=== PATIENT | female | born 1985 | race Caucasian/White ===

== ENCOUNTER 2019-12-17 05:44 | Inpatient (IN) ==
[2019-12-11 12:49] LABS: Basophils # 0.1 10*3/uL (0.0-0.2); Basophils % 0.4 % (0.0-0.8); Eosinophils # 0.1 10*3/uL (0.0-0.87); Eosinophils % 0.6 % (0.00-10.9); Hematocrit 41.1 VOL% (35.7-47.0); Hemoglobin 13.1 GM/DL (12.0-16.0); Immature Granulocytes % 0.3 %; Immature Granulocytes Absolute 0.03 #; Lymphocytes # 4.3 10*3/uL (1.4-4.0); Lymphocytes % 38.2 % (21.3-54.2); Mean Corpuscular HGB Conc 31.9 GM/DL (32-36); Mean Corpuscular Volume 84.4 FL (87-102); Mean Platelet Volume 8.8 FL (9.6-12.0); Monocytes % 5.8 % (1.7-12.7); Neutrophils % 54.7 % (38.7-73.9); Platelet Count 290 T/CUMM (130-400); Red Blood Count 4.87 MC/CUMM (3.8-5.5); Red Cell Distribution Width 14.1 % (9.3-17.3); White Blood Count 11.2 T/CUMM (4-12)
[2019-12-11 12:54] LABS: PT Patient Result 10.4 SECS (9.8-11.9); Partial Thromboplastin Time 28.3 SECS (23.9-33.8)
[2019-12-11 13:05] LABS: Apearance,Urine CLEAR (Clear); Bilirubin,Urine Negative (Negative); Blood, Urine Negative (Negative); Glucose,Urine (UA) Negative (Negative); Ketones,Urine Negative (Negative); Mucus,Urine Occasional /LPF (Occasional); Nitrite,Urine Negative (Negative); Protein,Urine Negative; RBC,Urine 1 /HPF (0-4); Squamous Epithelial Cell,Urine Occasional /HPF (0-10); Urine Color Yellow (Yellow); Urine Specific Gravity 1.027 (1.001-1.035); Urine Urobilinogen < 2.0 EU/DL (0.2-1.0); WBC,Urine 1 /HPF (0-6)
[2019-12-11 13:08] LABS: Calcium 9.4 MG/DL (8.5-10.1); Osmolality,Calculated 274.7 MOS/KG (273-304)
[2019-12-17] MEDS ORDERED: ceFAZolin 1,000 MG VIAL ONE (05:45)
[2019-12-17] MEDS ORDERED: ceFAZolin 1,000 MG in SYRINGE 1 EACH IV ONE (06:00)
[2019-12-17] MEDS ORDERED: INDIGO CARMINE 5 ML AMP ONE (06:36)
[2019-12-17] MEDS ORDERED: TISSUE ADHESIVE 1 EACH APPLICATOR TOP ONE (06:36)
[2019-12-17] MEDS ORDERED: FAMOTIDINE 20 MG TABLET ONE (06:50)
[2019-12-17] MEDS ORDERED: FAMOTIDINE 20 MG TABLET PO STA (07:00)
[2019-12-17] MEDS: LACTATED RINGERS 1,000 ML IV SCH ×4 (07:27→22:18)
[2019-12-17] MEDS ORDERED: SUGAMMADEX 200 MG/2 ML VIAL IV ONE (09:10)
[2019-12-17] MEDS ORDERED: ROPIVACAINE 0.5% 30 ML VIAL ONE (09:20)
[2019-12-17] MEDS ORDERED: DEXAMETHASONE 4 MG/1 ML VIAL ONE ×3 (09:20→11:33)
[2019-12-17] MEDS ORDERED: LIDOCAINE 2% 5 ML VIAL ONE ×2 (09:21→11:32)
[2019-12-17] MEDS ORDERED: ACETAMINOPHEN 325 MG TABLET PO PRN (09:51)
[2019-12-17] MEDS ORDERED: BISACODYL 10 MG SUPP RECTAL PRN (09:51)
[2019-12-17] MEDS ORDERED: MAGNESIUM HYDROXIDE SUSP 30 ML UDCUP PO PRN (09:51)
[2019-12-17] MEDS ORDERED: ONDANSETRON 4 MG/2 ML VIAL IV PRN (09:51)
[2019-12-17] MEDS ORDERED: BENZOCAINE/MENTHOL LOZENGE 18/BOX PO PRN (09:51)
[2019-12-17 10:15] LABS: Apearance,Urine CLEAR (Clear); Bilirubin,Urine Negative (Negative); Blood, Urine Negative (Negative); Glucose,Urine (UA) Negative (Negative); Ketones,Urine Negative (Negative); Mucus,Urine Few /LPF (Occasional); Nitrite,Urine Negative (Negative); Protein,Urine Negative; Squamous Epithelial Cell,Urine Occasional /HPF (0-10); Urine Color Yellow (Yellow); Urine Specific Gravity 1.009 (1.001-1.035); Urine Urobilinogen < 2.0 EU/DL (0.2-1.0); WBC,Urine 2 /HPF (0-6)
[2019-12-17] MEDS ORDERED: KETOROLAC 30 MG/1 ML VIAL IV ONE (10:58)
[2019-12-17] MEDS ORDERED: propofoL 200 MG/20 ML VIAL IV ONE (11:32)
[2019-12-17] MEDS ORDERED: KETAMINE 500 MG/10 ML VIAL ONE (11:32)
[2019-12-17] MEDS ORDERED: SEVOFLURANE 1 UNIT/15 MINUTE INH ONE (11:32)
[2019-12-17] MEDS ORDERED: MIDAZOLAM 2 MG/2 ML VIAL ONE (11:33)
[2019-12-17] MEDS ORDERED: ACETAMINOPHEN 1,000 MG/100 ML VIAL IV ONE (11:33)
[2019-12-17] MEDS ORDERED: PHENYLEPHRINE 1 MG/10 ML SYRINGE IV ONE (11:33)
[2019-12-17] MEDS ORDERED: fentaNYL 100 MCG/2 ML VIAL ONE (11:33)
[2019-12-17] MEDS ORDERED: ROCURONIUM 100 MG/10 ML VIAL IV ONE (11:33)
[2019-12-17] MEDS ORDERED: KETOROLAC 30 MG/1 ML VIAL ONE (11:33)
[2019-12-17] MEDS ORDERED: ePHEDrine 50 MG/ML AMP ONE (11:33)
[2019-12-17] MEDS ORDERED: SUCCINYLCHOLINE 200 MG/10 ML VIAL ONE (11:33)
[2019-12-17] MEDS ORDERED: ONDANSETRON 4 MG/2 ML VIAL ONE (11:33)
[2019-12-17] MEDS ORDERED: LACTATED RINGERS 1,000 ML IV ONE (11:34)
[2019-12-17] MEDS: HYDROmorphone 2 MG/1 ML VIAL IV PRN ×2 (11:35→14:30)
[2019-12-17] MEDS: ceFAZolin 1,000 MG in SYRINGE 1 EACH IV SCH (17:40)
[2019-12-17] MEDS: IBUPROFEN 800 MG TABLET PO PRN (20:23)
[2019-12-18] MEDS ORDERED: SODIUM CHLORIDE 0.9% 50 ML IV ONE (00:12)
[2019-12-18] MEDS: ceFAZolin 1,000 MG in SYRINGE 1 EACH IV SCH (00:12)
[2019-12-18] MEDS: IBUPROFEN 800 MG TABLET PO PRN ×3 (03:47→20:00)
[2019-12-18] MEDS: oxyCODONE/ACETAMINOPHEN 5-325 MG TABLET PO PRN ×3 (03:47→20:00)
[2019-12-18] MEDS: ENOXAPARIN 40 MG/0.4 ML SYRINGE SUBCUT SCH (05:21)
[2019-12-18 06:36] LABS: Basophils % 0.1 % (0.0-0.8); Hematocrit 37.8 VOL% (35.7-47.0); Hemoglobin 11.9 GM/DL (12.0-16.0); Immature Granulocytes Absolute 0.19 #; Lymphocytes # 1.8 10*3/uL (1.4-4.0); Lymphocytes % 9.6 % (21.3-54.2); Mean Corpuscular HGB Conc 31.5 GM/DL (32-36); Mean Corpuscular Volume 84.6 FL (87-102); Mean Platelet Volume 9.2 FL (9.6-12.0); Monocytes % 5.6 % (1.7-12.7); Neutrophils % 83.7 % (38.7-73.9); Platelet Count 290 T/CUMM (130-400); Red Blood Count 4.47 MC/CUMM (3.8-5.5); Red Cell Distribution Width 13.6 % (9.3-17.3); White Blood Count 18.8 T/CUMM (4-12)
[2019-12-18] MEDS: DOCUSATE SODIUM 100 MG CAPSULE PO PRN ×2 (09:20→20:00)
[2019-12-18] MEDS ORDERED: SIMETHICONE CHEW 80 MG TABLET PO PRN (18:55)
[2019-12-19] MEDS: oxyCODONE/ACETAMINOPHEN 5-325 MG TABLET PO PRN (05:04)
[2019-12-19] MEDS: IBUPROFEN 800 MG TABLET PO PRN (05:04)
[2019-12-19] MEDS: ENOXAPARIN 40 MG/0.4 ML SYRINGE SUBCUT SCH (05:08)
[2019-12-19 07:21] VITALS: BP 109/56
== END 2019-12-19 09:45 | disposition home or self-care (01) | DRG 742 ==
LOC: N.OR 05:44 → N.SDSINP 05:44 → N.OB 09:51
PROVIDERS: ADMIT Specialist; ATTEND Specialist